=== PATIENT | female | born 1980 | race Caucasian/White ===

== ENCOUNTER 2020-03-31 11:22 | Day surgery (SDC) | payer OTHER ==
[~2020-03-31] VITALS: Ht 172.7 cm; Wt 54.8 kg
[~2020-03-31 11:22] MED LIST: ALBU8.5H8 INH
[2020-03-31 12:06] VITALS: BP 142/87
[2020-03-31] MEDS ORDERED: LACTATED RINGERS 1,000 ML IV SCH (12:10)
[2020-03-31] MEDS ORDERED: CHLORHEXIDINE 15 ML UDC MM ONE (12:30)
[2020-03-31] MEDS ORDERED: ACETAMINOPHEN 500 MG TABLET PO ONE (13:57)
[2020-03-31] MEDS ORDERED: SCOPOLAMINE 1MG PATCH TD SCH (13:57)
[2020-03-31] MEDS ORDERED: FENTANYL PF 250 MCG/5ML ONE (14:00)
[2020-03-31] MEDS ORDERED: MIDAZOLAM 1 MG/ML, 2ML ONE (14:00)
[2020-03-31] MEDS ORDERED: BUPIVACAINE/PF 0.25% ONE (14:00)
[2020-03-31] MEDS ORDERED: SCOPOLAMINE 1MG PATCH TD ONE (14:00)
[2020-03-31] MEDS ORDERED: DEXAMETHASONE 4 MG/ML, 1ML ONE ×2 (14:05→14:47)
[2020-03-31] MEDS ORDERED: ONDANSETRON 2MG/ML, 2ML ONE ×2 (14:06→14:47)
[2020-03-31] MEDS ORDERED: PROPOFOL 10 MG/ML, 20ML ONE (14:47)
[2020-03-31] MEDS ORDERED: SUCCINYLCHOLINE 20 MG/ML, 10ML ONE (14:47)
[2020-03-31] MEDS ORDERED: ROCURONIUM 10MG/ML,5ML ONE (14:47)
[2020-03-31] MEDS ORDERED: SUGAMMADEX 200 MG/2 ML IVPush ONE (14:47)
[2020-03-31] MEDS ORDERED: PROMETHAZINE 12.5 MG SUPP PR PRN (16:00)
[2020-03-31] MEDS ORDERED: ONDANSETRON 2MG/ML, 2ML IVPush PRN (16:00)
[2020-03-31] MEDS ORDERED: PROMETHAZINE 25 MG/ML, 1ML IVPush PRN (16:00)
[2020-03-31] MEDS ORDERED: HYDROmorphone 1 MG/ML, 1ML INJ IVPush PRN (16:00)
[2020-03-31] MEDS ORDERED: LABETALOL 5MG/ML, 20ML IV PRN (16:00)
[2020-03-31] MEDS ORDERED: DIAZEPAM 5 MG/ML, 2ML IVPush PRN (16:00)
[2020-03-31] MEDS ORDERED: MEPERIDINE/PF 25MG/0.5ML IVPush PRN (16:00)
[2020-03-31] MEDS ORDERED: ALBUTEROL SULFATE 2.5 MG/3 ML NPPB PRN (16:00)
[2020-03-31] MEDS ORDERED: EPHEDRINE 50 MG/ML, 1ML IVPush PRN (16:00)
[2020-03-31] MEDS ORDERED: hydrALAzine 20 MG/ML, 1ML IV PRN (16:00)
[2020-03-31] MEDS ORDERED: DIPHENHYDRAMINE 50 MG/ML, 1ML IVPush PRN (16:00)
[2020-03-31] MEDS ORDERED: MIDAZOLAM 1 MG/ML, 2ML IV PRN (16:00)
[2020-03-31] MEDS ORDERED: OXYcodone 5 MG/5 ML ORAL.SOL UDC PO PRN (16:00)
[2020-03-31] MEDS ORDERED: FENTANYL PF 100 MCG/2ML ONE (16:22)
[2020-03-31] MEDS ORDERED: OXYcodone 5 MG/5 ML ORAL.SOL UDC ONE (16:23)
[2020-03-31] MEDS: FENTANYL PF 100 MCG/2ML IV PRN ×3 (16:34→16:44)
== END 2020-03-31 18:20 | disposition home or self-care (01) ==
LOC: OUT 11:22
PROVIDERS: ATTEND Obstetrics & Gynecology
DX: Z30.2 Encounter for sterilization (principal); E78.5 Hyperlipidemia, unspecified; F41.9 Anxiety disorder, unspecified; E55.9 Vitamin D deficiency, unspecified; Z79.899 Other long term (current) drug therapy; Z88.5 Allergy status to narcotic agent; Z90.49 Acquired absence of other specified parts of digestive tract; Z80.0 Family history of malignant neoplasm of digestive organs
CPT/HCPCS: 36415; 58661; 86850; 86900; 88302; J0330; J1100; J2250; J2405; J2704; J3010; J3490; J7120